=== PATIENT | male | born 2000 | race Caucasian/White ===

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

== ENCOUNTER 2019-03-13 06:10 | Day surgery (SDC) | payer OTHER ==
[2019-03-04 16:46] VITALS: BMI 29.5
[2019-03-13] MEDS ORDERED: EPINEPHrine 1:1,000 1 MG/1 ML - 30ML VIAL (INJECTION) ONE (07:03)
[2019-03-13] MEDS ORDERED: BACITRACIN 15 GM TUBE TOPICAL OINTMENT ONE (07:04)
[2019-03-13] MEDS ORDERED: MIDAZOLAM HCL 2 MG/2 ML SINGLE DOSE VIAL ONE (07:25)
[2019-03-13] MEDS ORDERED: BUPIVACAINE LIPOSOME/PF (EXPAREL) 266 MG/20 ML VIAL ONE (07:25)
[2019-03-13] MEDS ORDERED: SODIUM CHLORIDE 0.9% P/F 10 ML VIAL IJ ONE (07:26)
--- NOTE | 2019-03-13 07:48 | OP ---
Operative Note - Note: Operative Date: 03/13/19 Pre-Operative Diagnosis: Left ACL tear Operation: Left ACL reconstruction Implants: 3 [employer] Fast-Fix, 1 Arthrex tight-rope Post-Operative Diagnosis: Same as Pre-op Surgeon: Yordan Bird Equine Science Instructor: Piedad Anderson Anesthesiologist/AUTOMATION SOFTWARE ENGINEER: Hernan Pimentel Anesthesia: General Operative Report Dictated: Yes
[2019-03-13] MEDS ORDERED: ceFAZolin SODIUM 1 GM VIAL ONE (08:08)
[2019-03-13] MEDS ORDERED: ONDANSETRON 4 MG/2 ML VIAL ONE (08:08)
[2019-03-13] MEDS ORDERED: fentaNYL CITRATE 250 MCG/5 ML VIAL ONE (08:08)
[2019-03-13] MEDS ORDERED: DEXAMETHASONE SOD PHOSPHATE 4 MG/1 ML VIAL ONE (08:08)
[2019-03-13] MEDS ORDERED: PROPOFOL 20 ML ONE (08:08)
[2019-03-13] MEDS ORDERED: SUCCINYLCHOLINE CHLORIDE 200 MG/10 ML VIAL ONE (08:08)
[2019-03-13] MEDS ORDERED: TRANEXAMIC ACID 1000 MG/10 ML VIAL ONE (09:11)
[2019-03-13] MEDS ORDERED: ONDANSETRON 4 MG/2 ML VIAL IVPUSH PRN (09:18)
[2019-03-13] MEDS ORDERED: oxyCODONE HCL 5 MG TABLET PO PRN ×2 (09:18)
[2019-03-13] MEDS ORDERED: LACTATED RINGERS SOLUTION 1,000 ML IV SCH (09:30)
[2019-03-13] MEDS ORDERED: oxyCODONE HCL 5 MG TABLET PO ONE (13:00)
[2019-03-13] MEDS ORDERED: oxyCODONE HCL 5 MG TABLET ONE (13:01)
[2019-03-13 13:16] VITALS: TEMP 97.9
--- NOTE | 2019-03-13 13:18 | OP ---
DATE OF OPERATION: 03/13/2019 PREOPERATIVE DIAGNOSES: Anterior cruciate ligament rupture, medial meniscus tear. POSTOPERATIVE DIAGNOSES: Anterior cruciate ligament rupture, medial meniscus tear. PROCEDURE: Left knee arthroscopy with revision anterior cruciate ligament reconstruction utilizing patellar tendon autograft, medial meniscal repair. ANESTHESIA: Regional plus general. POSTOPERATIVE CONDITION: Stable. COMPLICATIONS: One times broken FlipCutter, one times broken SwiveLock anchor. BLOOD LOSS: 50 mL. INDICATIONS: This is a 18-year-old gentleman who had previously undergone ACL surgery. He had subsequently gone on to have failure of his graft. Initially, he did not elect for reconstructive surgery, but then decided to at a later date. Treatment options were reviewed including nonoperative versus operative management. Operative risks were reviewed in detail including bleeding, infection, neurovascular injury, need for further surgery, postoperative pain and stiffness, re-rupture again, progression of osteoarthritis. We discussed medical risks such as heart attack, stroke, DVT, PE, and . I addressed the use of perioperative antibiotic and DVT prophylaxis. We reviewed the postoperative rehabilitation protocol. I addressed the patient's questions and concerns. He voiced understanding and elected to proceed. DESCRIPTION OF PROCEDURE: Patient was brought to the operating room where general anesthesia was administered after placing him onto the operating room table supine. He had been given a block in the preoperative holding area. Left lower extremity was examined, demonstrating grossly positive Olive. His LCL was 1+ which was symmetric with the contralateral. His dial was slightly increased versus the contralateral. His MCL was stable. His PCL was stable. He had a 2/borderline 3+ pivot shift. It should be noted that he did have an increased Olive on the contralateral as well, but with firm endpoint. The patient was then prepped and draped in the usual sterile fashion. A preoperative dose of antibiotics was given, and the usual timeout procedure was performed. The initial decision was made to harvest the patellar tendon graft. An incision was made over the patellar tendon. Blunt dissection was carried down to the level of the paratenon which was then split in line with its fibers. Electrocautery was used to maintain hemostasis. The central third of the patellar tendon was identified and marked out in a 10-mm swath. A 10 blade was then used to make 2 incisions parallel within the tendon. The bone blocks were then marked out on each end, approximately 10 x 20 mm in each. An oscillating saw was then used to remove the bone blocks. His bone quality was extremely hard, and irrigation was used to maintain cooling of the saw. After retrieving the graft, it was measured to be 80 mm in length, and the bone block diameter was 11 mm. The graft was now prepared on the back table, drilling 1 hole in the femoral side and 2 holes in the tibial side. Sutures were passed. The graft was rounded to aid in graft passage. The arthroscope was now inserted into the knee concurrently using a portal established just lateral to the patellar tendon, brought down through the skin. Examination of the patellofemoral joint demonstrated no lesions. Examining the ACL demonstrated complete rupture and some leftover suture material. The arthroscope was passed into the medial compartment. Here, a medial portal was established under spinal needle localization. Examining the medial compartment demonstrated a peripheral medial meniscal tear which was unstable. There was moderate partial-thickness cartilage loss along the medial femoral condyle and tibial surface. A shaver was passed, and the periphery of the tear was debrided. Given the instability of the tear, a repair was performed. Three [employer] FAST-FIX 360 devices were used, extending from anterior portion of the mid body to the posterior horn. Following insertion of 3 devices, the meniscus was now reduced and found to be stable. It should be noted that there was a small horizontal cleavage component between the second and third devices. However, it was felt to be relatively small, and given his young age, hopefully, will heal in. Attention was then turned to the notch. The remnants of the previous ACL were removed after the tissue was removed. The lateral compartment was now examined, demonstrating a meniscal tear. There was moderate, partial-thickness chondral loss along the femoral and tibial surfaces. Attention was turned back to the notch. Here, some of the bony overgrowth was debrided using the shaver. A femoral drill guide was now inserted and positioned at the anatomic origin of the ACL. Small incision was made distally in the thigh. The trocar was inserted down to the level of the bone after blunt spreading. FlipCutter was now drilled into the knee with extremely hard bone present and the FlipCutter proceeding slowly. The FlipCutter was then deployed. Position was satisfactory. Upon starting the FlipCutter, the blade ruptured. The ruptured portion of the blade was then retrieved out of the knee. The FlipCutter was then removed. Given that no further size 11s were present, a size 10.5 was chosen, and the socket was completed. A passing suture was placed. The graft was now trimmed down slightly to accommodate the smaller tunnel. The tibial drill guide was now inserted into the anatomic origin of the tibia. A guide pin was then placed here. Guide pin placement was satisfactory. Again, very hard bone was noted. An 11 reamer would not advance, and therefore, a 7 reamer was first inserted, utilizing irrigation to maintain the drill bit in a cool fashion. The 7 having then got through, the 11 was then passed to enlarge the tunnel. The passing suture was now passed through here. The tunneler device was now passed through the passing suture and passed through the femoral socket. Entire was seated firmly onto the femoral cortex. The graft was now drawn into the socket, bottoming out the TightRope. The knee was now cycled. The guide pin for the interference screw was now inserted anteriorly through the tibial tunnel. Guide pin was visualized arthroscopically to pass in front of the graft. With the knee in full extension, the interference screw was tapped for an 8, and then, an 8-mm interference screw was inserted. Just prior to full insertion of the interference screw, a small pop was heard from the screw. Screwdriver was removed, and the most-proximal aspect of the screw had broken off. A Olive maneuver was now performed, as well as graft tension examined. Both were stable. In order to back up the screw, it was decided to place a SwiveLock anchor. The SwiveLock anchor was drilled. This was done just distal to the tibial tunnel. It was then tapped. The sutures from the graft were then inserted into the anchor, and then, the anchor was inserted. After inserting the anchor approximately 1[address], the anchor stopped advancing, and the threads were found to have stripped. Sutures were then removed. The anchor was removed. The hole was tapped 1 more time. Second anchor was inserted, and good purchase was achieved on this 1. At this point, the excess sutures were cut. The knee was again passed through a Olive and found to be stable. The wounds were now irrigated. The patellar defect was then filled with the remaining graft from the graft preparation. Then, 0 Vicryl was used to loosely approximate the patellar tendon and secure the graft in place. The paratenon was repaired using 0 Vicryl as well. The subcutaneous tissue was repaired using 2-0 Vicryl. Skin was closed using 3-0 nylon. Sterile dressings were placed. Patient was placed into a knee immobilizer. He was transferred to recovery room in stable condition. Kali [email or web address]/[id number]
[2019-03-13 13:56] VITALS: BP 125/72; PULSE 73
== END 2019-03-13 13:50 | disposition home or self-care (01) ==
LOC: FASU 06:10
PROVIDERS: ATTEND Orthopaedic Surgery Sports Medicine
PROC: 0SBD4ZZ Excision of Left Knee Joint, Percutaneous Endoscopic Approach (ICD-10-PCS; 2019-03-13)
PROC: 0MRP47Z Replacement of Left Knee Bursa and Ligament with Autologous Tissue Substitute, Percutaneous Endoscopic Approach (ICD-10-PCS; principal; 2019-03-13 08:03)
DX: S83.512A Sprain of anterior cruciate ligament of left knee, initial encounter (principal); S83.242A Other tear of medial meniscus, current injury, left knee, initial encounter; X58.XXXA Exposure to other specified factors, initial encounter; Y93.9 Activity, unspecified; Y92.9 Unspecified place or not applicable
CPT/HCPCS: 94760